=== PATIENT | female | born 1955 | race Caucasian/White ===

== ENCOUNTER → 2019-05-28 10:32 | Outpatient (POV) | payer BC, SELFPAY | PROVIDERS: Visit Provider Dermatology | DX: Z00.00 Encounter for general adult medical examination without abnormal findings (principal) ==

== ENCOUNTER 2021-04-25 12:56 | Emergency (ER) | payer BC, SELFPAY ==
[2021-04-25 12:57] VITALS: BP 101/73; PULSE 109; RESP 18; TEMP 36.9; O2SAT 98; BMI 28.3
--- NOTE | 2021-04-25 13:43 | XR_ITS ---
PROCEDURE INFORMATION: Exam: XR Chest Exam date and time: 04/25/2021 1:43 PM Age: 65 years old Clinical indication: Other: Weakness TECHNIQUE: Imaging protocol: XR of the chest. Views: 1 view. COMPARISON: CR XR CHEST 2V 08/19/2019 10:53 AM FINDINGS: Lungs: Interstitial prominence and asymmetric airspace disease. Pleural spaces: Mild blunting of the right costophrenic angle, consistent with small pleural effusion versus scarring. Heart/Mediastinum: No cardiomegaly. Bones/joints: Degenerative change. IMPRESSION: 1. Interstitial prominence and asymmetric airspace disease. 2. Mild blunting of the right costophrenic angle.
[2021-04-25 13:50] LABS: Influenza A, PCR Not Detected (NotDetected); Influenza B, PCR Not Detected (NotDetected)
[2021-04-25 13:55] LABS: Eosinophils % 0.4 % (0.1-12.0); Hematocrit 43.1 % (37.0-47.0); Hemoglobin 14.2 g/dL (12.2-16.2); Lymphocytes # 0.7 K/mm3 (0.7-4.5); Mean Corpuscular HGB Conc 33.1 g/dL (31.8-35.4); Mean Corpuscular Hemoglobin 32.4 pg (27.0-31.2); Mean Corpuscular Volume 98.1 fl (81-99); Mean Platelet Volume 8.2 fl (7.4-10.4); Monocytes # 0.1 K/mm3 (0.1-1.0); Monocytes % 5.7 % (1.7-9.3); Neutrophils # 1.2 K/mm3 (1.8-7.8); Neutrophils % 59.9 % (37.0-80.0); Platelet Count 189 K/mm3 (142-424); Red Blood Count 4.39 M/mm3 (4.20-5.40); Red Cell Distribution Width 13.5 % (11.5-17.5); White Blood Count 2.1 K/mm3 (4.8-10.8)
[2021-04-25 14:01] LABS: Alanine Aminotransferase 32 U/L (12-78); Albumin Level 4.2 g/dl (3.5-5.0); Albumin/Globulin Ratio 1.1 (1.1-1.8); Alkaline Phosphatase 77 U/L (38-126); Anion Gap 17.9 mEq/L (5-15); Aspartate Amino Transferase 50 U/L (14-36); Bilirubin,Total 0.5 mg/dl (0.2-1.3); Blood Urea Nitrogen 21 mg/dl (7-17); Carbon Dioxide 25 mmol/L (22.0-30.0); Chloride 101 mmol/L (98-107); Creatinine Clearance Estimated 65 mL/min (50-200); Estimated Glomerular Filt Rate 72 ml/min (>60); GFR (African American) 87 ML/MIN (>60); Globulin 3.8 g/dL (1.3-3.2); Glucose 110 mg/dl (74-100); Lactic Acid 1.1 mmol/L (0.7-2.1); Potassium 3.9 mmoL/L (3.5-5.1); Sodium 140 mmol/L (136-145)
[2021-04-25 14:19] LABS: Coronavirus 19, PCR Detected (NotDetected)
[2021-04-25 14:30] VITALS: BP 107/70; PULSE 106; RESP 20; O2SAT 98
[2021-04-25 15:00] VITALS: BP 121/98; PULSE 100; RESP 20; O2SAT 97
[2021-04-25 15:30] VITALS: BP 103/82; PULSE 108; RESP 24; O2SAT 94
[2021-04-25 16:00] VITALS: BP 111/69; PULSE 110; RESP 24; O2SAT 99
--- NOTE | 2021-04-25 16:19 | HMH.EDGENADL ---
ED Disposition Clinical Impression: COVID-19 virus infection Disposition: Home, Self-Care Condition on Discharge: Fair Instructions: DI for COVID-19 (Suspected or Confirmed ) Additional Instructions: Isolate until 10 days after symptoms started. Tylenol or ibuprofen for pain. Rest and drink plenty of fluids. Return to the emergency department if worsening shortness of breath. Referrals: Provider,Referral, [Primary Care Provider] - - Critical Care Critical Care Time: No Attestation: On 04/25/21, the high probability of a clinically significant, sudden or life threatening deterioration of the following system(s) required my full and direct attention, intervention and personal management. The time I documented below is in addition to time spent performing reported procedures but includes the following listed in this critical care notation. Medical Decision Making - Dean Inquiry Pt receiving controlled substance: No Vital Signs: 04/25/21 12:57 04/25/21 14:30 04/25/21 15:00 Temperature 98.4 F Temperature Source Oral Pulse Rate 106 H 100 H Pulse Rate [Right Radial] 109 H Respiratory Rate 18 20 20 Blood Pressure 107/70 L 121/98 H Blood Pressure [Right Arm] 101/73 L Blood Pressure Mean 78 105 Blood Pressure Mean [Right Arm] 82 Blood Pressure Source [Right Arm] Automatic Cuff Blood Pressure Position [Right Arm] Sitting 02 Sat by Pulse Oximetry 98 98 97 Oxygen Delivery Method Room Air 04/25/21 15:30 04/25/21 16:00 Temperature Temperature Source Pulse Rate 108 H 110 H Pulse Rate [Right Radial] Respiratory Rate 24 24 Blood Pressure 103/82 L 111/69 Blood Pressure [Right Arm] Blood Pressure Mean 89 83 Blood Pressure Mean [Right Arm] Blood Pressure Source [Right Arm] Blood Pressure Position [Right Arm] 02 Sat by Pulse Oximetry 94 L 99 Oxygen Delivery Method - Lab Data Lab Results 04/25/21 13:35: WBC 2.1 L, RBC 4.39, Hgb 14.2, Hct 43.1, MCV 98.1, MCH 32.4 H, MCHC 33.1, RDW 13.5, Plt Count 189, MPV 8.2, Neut % (Auto) 59.9, Lymph % (Auto) 33.0, [place] % (Auto) 5.7, Eos % (Auto) 0.4, Baso % (Auto) 1.0, Neut # (Auto) 1.2 L, Lymph # (Auto) 0.7, [place] # (Auto) 0.1, Eos # (Auto) 0.0, Baso # (Auto) 0.0 04/25/21 13:35: Sodium 140, Potassium 3.9, Chloride 101, Carbon Dioxide 25, Anion Gap 17.9 H, BUN 21 H, Creatinine 0.80, Estimated Creat Clear 65, Estimated GFR 72, Est GFR ( Amer) 87, Glucose 110 H, Calcium 9.0, Total Bilirubin 0.5, AST 50 H, ALT 32, Alkaline Phosphatase 77, Total Protein 8.0, Albumin 4.2, Globulin 3.8 H, Albumin/Globulin Ratio 1.1 04/25/21 13:35: Lactate 1.1 04/25/21 13:35: SARS-CoV-2 (PCR) Detected A, Influenza A Untype (PCR) Not detected, Influenza Type B (PCR) Not detected Result diagrams: 04/25/21 13:35 04/25/21 13:35 Orders (Tests/Meds): ED MEDICATIONS Generic Name Dose Route Start Last Admin Trade Name Freq PRN Reason Stop Dose Admin Sodium Chloride 1,000 ml 04/25/21 16:35 Sodium Chloride 0.9% 1000ml Bag IV 04/25/21 16:36 BOLUS ONE ORDERS Category Date Time Status Blood Culture Stat Micro 04/25/21 13:35 Received - Radiology Data #1 Image(s): Chest Image Reviewed: Yes I have reviewed radiologist's interpretation PROCEDURE INFORMATION: Exam: XR Chest Exam date and time: 04/25/2021 1:43 PM Age: 65 years old Clinical indication: Other: Weakness TECHNIQUE: Imaging protocol: XR of the chest. Views: 1 view. COMPARISON: CR XR CHEST 2V 08/19/2019 10:53 AM FINDINGS: Lungs: Interstitial prominence and asymmetric airspace disease. Pleural spaces: Mild blunting of the right costophrenic angle, consistent with small pleural effusion versus scarring. Heart/Mediastinum: No cardiomegaly. Bones/joints: Degenerative change. IMPRESSION: 1. Interstitial prominence and asymmetric airspace disease. 2. Mild blunting of the right costophrenic angle. Electronically signed by Eduardo Finley MD
[2021-04-25 18:11] VITALS: BP 123/74; PULSE 87; RESP 20; TEMP 36.6; O2SAT 98
--- NOTE | 2021-04-26 14:42 | PC.NURSE ---
Attempted to call patient after receiving positive culture results without answer. Number disconnected, unable to leave a message
== END 2021-04-25 18:13 | disposition home or self-care (01) ==
PROVIDERS: Emergency Provider Emergency Medicine
DX: U07.1 COVID-19 (principal); F17.210 Nicotine dependence, cigarettes, uncomplicated
CPT/HCPCS: 71045; 80053; 83605; 85025; 87040; 87077; 87186; 96365; 99284; U0003

== ENCOUNTER 2021-12-12 15:04 | Emergency (ER) | payer MEDICARE, SELFPAY ==
[2021-12-12 15:21] VITALS: BP 111/61; PULSE 95; RESP 16; TEMP 36.6; O2SAT 98; BMI 28.3
[2021-12-12 16:00] VITALS: BP 111/61; PULSE 95; RESP 16; TEMP 36.7; O2SAT 98; BMI 28.3
--- NOTE | 2021-12-12 16:19 | HMH.EDUTC ---
[facility] [facility] [place] Clinical Impression: Lac[place] Disposition: Home, Self-Care Condition on Discharge: Good Instructions: DI for Laceration Repair -- Simple Additional Instructions: keep area clean and dry return n 10 days for suture removal watch for s/s infection Prescriptions: cephALEXin [Cephalexin 500mg Tab] 500 mg PO BID 7 Days #14 tab Transmission Status: Pending to [id number] Referrals: Paty Alexandra APRN [Primary Care Provider] - Time of Disposition: 16:27 Medical Decision Making - Dean Inquiry Pt receiving controlled substance: No Vital Signs: 12/12/21 15:21 Temperature 98 F Temperature Source Oral Pulse Rate [Radial] 95 H Respiratory Rate 16 Blood Pressure [Right Arm] 111/61 Blood Pressure Mean [Right Arm] 77 Blood Pressure Position [Right Arm] Sitting 02 Sat by Pulse Oximetry 98 Oxygen Delivery Method Room Air Orders (Tests/Meds): ED MEDICATIONS Discontinued Medications Generic Name Dose Route Start Last Admin Trade Name Freq PRN Reason Stop Dose Admin Tetanus/Reduced Diphtheria/Acell Pertussis 0.5 ml 12/12/21 15:50 Tet/Diphth/Pert-Adult 0.5ml Syringe IM 12/12/21 15:51 .ONCE ONE [facility] [place] [facility] [place] - General Chief complaint: Urgent [facility] Stated complaint: left hand laceration Time Seen by Provider: 12/12/21 16:19 Mode of Arrival: Ambulatory Source of Information: Patient Limitations: No Limitations Description of Symptoms (Recalled from Triage Doc. by RN): PT REPORTS LACERATION TO PALM SIDE OF LT HAND ON BROKEN CERAMIC PIECE. - History of Present Illness Provider Complaint: 66 yr old female presents for laceration to palm on left hand at ring finger base for ceramic what knot - Related Data Previous Rx's Medication Instructions Recorded Pantoprazole Sodium [Protonix 40mg 40 mg PO DAILY 30 Days #30 tab 01/28/18 tablet] Azithromycin [Z-Hipolito 250mg Tab*] 250 mg PO UD DOSE PK #6 tab 08/19/19 cephALEXin [Cephalexin 500mg Tab] 500 mg PO BID 7 Days #14 tab 12/12/21 Allergies Allergy/AdvReac Type Severity Reaction Status Date / Time No Known Allergies Allergy Unverified 08/15/17 14:58 [facility] History - Hepatitis A Screen Attestation statement:: This patient has been screened for Hepatitis A risk factors. I have reviewed the patient's past medical history: Yes Medical History: Denies:: Cancer, Diabetes Mellitus Type 1, Diabetes Mellitus Type 2, MRSA Amputation: No Fractures: No - Social History Smoking Status: Current every day smoker Tobacco Type: cigarettes Alcohol Intake: never Occupational Status: employed ROS Obtained: Yes Systems reviewed as appropriate & no additional complaints - Constitutional Constitutional: Reports system reviewed and no additional complaints, except as docu, Denies fever(s) - Eyes Eyes: Reports system reviewed and no additional complaints, except as docu, Denies loss of vision - ENT Ears, Nose, Mouth, and Throat: Reports system reviewed and no additional complaints, except as docu, Denies otalgia - Cardiovascular Cardiovascular: Reports system reviewed and no additional complaints, except as docu, Denies chest pain - Respiratory Respiratory: Reports system reviewed and no additional complaints, except as docu, Denies cough - Gastrointestinal Gastrointestingal: Reports: system reviewed and no additional complaints, except as docu. Denies: diarrhea - Musculoskeletal Musculoskeletal: Reports system reviewed and no additional complaints, except as docu, Denies joint pain - Integumentary/Breasts Skin/Breast: Reports system reviewed and no additional complaints, except as docu, Reports as per HPI, Reports wounds - Neurologic Neurologic: Reports system reviewed and no additional complaints, except as docu, Denies dizziness - Endocrine Endocrine: Reports system reviewed and no additional complaints, except as docu, Denies deepening of the voice - Hematologic/Lymphatic Hen
[2021-12-12 16:20] VITALS: BP 111/61; PULSE 95; RESP 16; TEMP 36.7; O2SAT 98
== END 2021-12-12 16:31 | disposition home or self-care (01) ==
PROVIDERS: Emergency Provider Nurse Practitioner Family; PCP Nurse Practitioner Family
DX: S61.412A Laceration without foreign body of left hand, initial encounter (principal); F17.210 Nicotine dependence, cigarettes, uncomplicated; Z23 Encounter for immunization; W26.9XXA Contact with unspecified sharp object(s), initial encounter
CPT/HCPCS: 12001; G0168; 90471; 90715; 99213; G0463

== ENCOUNTER 2021-12-21 11:44 | Emergency (ER) | payer MEDICARE, SELFPAY ==
[2021-12-21 12:05] VITALS: BMI 28.3
[2021-12-21 12:06] VITALS: BP 146/88; PULSE 98; RESP 14; TEMP 36.7; O2SAT 100
== END 2021-12-21 12:06 | disposition home or self-care (01) ==
LOC: UTC 11:47
PROVIDERS: Emergency Provider Nurse Practitioner
DX: Z48.02 Encounter for removal of sutures (principal)

== ENCOUNTER 2023-09-20 11:15 | Emergency (ER) | payer MEDICARE, SELFPAY ==
[2023-09-20] VITALS (13 sets, daily range): BP systolic 89–142; BP diastolic 48–82; PULSE 76–125; RESP 14–22; TEMP 36.4–36.8; O2SAT 93–98; BMI 28.3
--- NOTE | 2023-09-20 11:14 | ECG_ITS ---
APPROVED REPORT Exam: Resting ECG HR:123 bpm ECG Measurements Heart Rate 123 AXES MO 148 P 51 QRSd 85 QRS -39 QT 337 T 22 QTc 410 Conclusion SINUS TACHYCARDIA LEFT AXIS DEVIATION [QRS AXIS < -30] LOW QRS VOLTAGE IN PRECORDIAL LEADS [QRS DEFLECTION < 1.0 mV IN CHEST LEADS] POSSIBLE ANTERIOR MYOCARDIAL INFARCTION , old ABNORMAL ECG UNCONFIRMED REPORT Electronically signed by : Elvis Cleveland MD 09/22/2023 14:45:30
--- NOTE | 2023-09-20 11:18 | XR_ITS ---
FINAL REPORT CLINICAL HISTORY: chest pain, SOA COMPARISON: 04/25/2021 FINDINGS: SINGLE-VIEW CHEST The heart size is normal. The mediastinum is normal. The previously noted airspace opacity in the periphery of the right lung has improved consistent with resolving pneumonia. There is increased atelectasis in the right perihilar region. There is no pneumothorax. IMPRESSION: Improving pneumonia. Reviewed, Interpreted and Dictated by Flaquito Long MD Transcribed by Bibiana Walsh Authenticated and [facility]
[2023-09-20 11:23] LABS: Coronavirus 19, PCR Not Detected (NotDetected); Influenza A, PCR Not Detected (NotDetected); Influenza B, PCR Not Detected (NotDetected)
--- NOTE | 2023-09-20 11:23 | PC.NURSE ---
XR AT BEDSIDE
--- NOTE | 2023-09-20 11:25 | HMH.EDCP ---
Discharge Plan Disposition Patient Disposition: Home, Self-Care Condition: Good Prescriptions Prescriptions: New amoxicillin-pot clavulanate 875-125 mg tablet 1 tab PO BID Qty: 20 0RF azithromycin [Zithromax TRI-МАРИЯ] 500 mg tablet See Rx Instructions .ROUTE .COMPLEX Qty: 9 0RF Rx Instructions: For 250 mg dose pack: take 500 mg today (day 1), then 250 mg for 4 days (days 2-5) No Action pantoprazole 40 MG tablet,delayed release (DR/EC) 40 mg PO DAILY 30 Days Qty: 30 2RF azithromycin 250 MG tablet 250 mg PO UD DOSE PK Qty: 6 0RF Rx Instructions: Take two (2) tablets today, then one (1) tablet days #2 thru #5 cephalexin 500 MG tablet 500 mg PO BID 7 Days Qty: 14 0RF Referrals Follow up/Referrals: Provider,Referral, MD [Primary Care Provider] - See instructions Activity Restrictions/Add. Instructions Additional Instructions/Restrictions: You were evaluated in the emergency department today and diagnosed with pneumonia. 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 Return to the emergency department for new or worsening symptoms, such as worsening symptoms, difficulty breathing, or other concerns. Take Tylenol and ibuprofen as needed for pain. Clinical Impressions Clinical Impression: Pleurisy Pneumonia Qualifiers: Pneumonia type: due to unspecified organism Laterality: right Lung location: unspecified part of lung Qualified Code(s): J18.9 - Pneumonia, unspecified organism Instructions Patient Instructions: DI for Pneumonia -- Adult, DI for Atypical Chest Pain, DI for Pleurisy Discharge ED Provider: [place] [facility] General Chief Complaint: Chest Pain Stated Complaint: Chest Pain Time Seen by Provider: 09/20/23 11:16 Mode of Arrival: Wheelchair Source of Information: Patient Limitations: No Limitations Description of Symptoms (Recalled from ER Triage Doc. by RN): pt presents to ED with c/o weakness, nausea, vomitting, and right sided chest pain. pt reports it hurts when she moves or takes a deep breath. symptoms began this morning. History of Present Illness HPI narrative: This patient is a 67-year-old female with a history of lupus and GERD presenting to the emergency department for evaluation with concern for right-sided pleuritic chest pain. Patient states that she woke up this morning feeling like she may have the flu. She states that she was having bodyaches, aches in her hips, nausea, and right-sided chest pain. She states that it hurts when she moves or takes a deep breath. She denies any traumatic injuries or falls. She told her son that she felt like her lung collapsed. She denies any history of cardiopulmonary issues or any history of blood clots or clotting disorders. She was fine last night when she went to bed. She does note nausea, vomiting, and diarrhea that happened this morning. No other concerns noted at this time. Related Data Previous Rx's Medication Instructions Recorded pantoprazole 40 mg tablet,delayed 40 mg PO DAILY 30 days #30 tabs 01/28/18 release azithromycin 250 mg tablet 250 mg PO UD DOSE PK #6 tabs 08/19/19 cephalexin 500 mg tablet 500 mg PO BID 7 days #14 tabs 12/12/21 amoxicillin 875 mg-potassium 1 tab PO BID #20 tabs 09/20/23 clavulanate 125 mg tablet azithromycin 500 mg tablet See Rx Instructions PO .COMPLEX #9 09/20/23 (Zithromax TRI-МАРИЯ) tabs Allergies Allergy/AdvReac Type Severity Reaction Status Date / Time No Known Allergies Allergy Unverified 08/15/17 14:58 [facility] Disclaimer: The information contained in this section may have been updated after the patient was seen, as this information can be updated by other users. Social History Smoking Status: Former smoker tobacco type: cigarettes alcohol intake: never current occupational status: employed Travel in the last 8 weeks: None ROS Obtained: Yes All systems reviewed & no additional complaints except as documented Physical Exam General General appearance: alert Comment: Uncomfortable appearing Head Head exam: atraumatic and normocephalic Eye Eye exam: Present normal appearance, PERRL and EOMI ENT ENT exam: Present normal exam, normal oropharynx, mucous membranes moist and normal external ear exam Neck Neck exam: Present normal inspection, full ROM and trachea midline; Absent tenderness Chest Chest inspection: Present symmetric chest wall rise; Absent tenderness Respiratory Respiratory exam: Present normal lung sounds bilaterally and other (Splinting respirations); Absent wheezes, stridor or accessory muscle use Cardiovascular Cardiovascular exam: Present normal rhythm and tachycardia Abdominal Exam Abdominal exam: Present soft; Absent distention, tenderness or guarding Extremities Exam Extremities exam: Present normal inspection, full ROM and normal capillary refill; Absent tenderness or edema Back Exam Back exam: Present normal inspection and full ROM; Absent tenderness Neurological Exam Neurological exam: Present alert, oriented X3, CN II-XII intact and normal gait; Absent motor sensory deficit Psychiatric Psychiatric exam: Present normal affect and normal mood Skin Skin exam: Present warm and dry HEART Score HEART Score HEART Score assessment performed?: Yes History (anamnesis): Slightly suspicious ECG: Normal Age: >65 years Risk factors: 1-2 risk factors Troponin: </= normal limit HEART Score: 3 Critical Care Critical Care Time Critical Care Time: No Medical Decision Making Medical Records Medical records reviewed: Yes I reviewed the patient's medical records. Dean Inquiry Pt receiving controlled substance: No Vital Signs Vital Signs: 09/20/23 11:15 09/20/23 11:22 09/20/23 11:30 Temperature 97.6 F Temperature Source Oral Pulse Rate 107 H 95 H Pulse Rate [Left Radial] 125 H Respiratory Rate 19 22 Blood Pressure 114/66 Blood Pressure [Right Arm] 142/82 H Blood Pressure Mean Blood Pressure Mean [Right Arm] 102 Blood Pressure Source Blood Pressure Position 02 Sat by Pulse Oximetry 98 98 Oxygen Delivery Method Room Air Room Air 09/20/23 12:00 09/20/23 12:30 09/20/23 13:25 Temperature Temperature Source Pulse Rate 76 77 Pulse Rate [Left Radial] Respiratory Rate 14 16 15 Blood Pressure 115/57 L 117/63 105/61 L Blood Pressure [Right Arm] Blood Pressure Mean Blood Pressure Mean [Right Arm] Blood Pressure Source Blood Pressure Position 02 Sat by Pulse Oximetry 96 97 94 L Oxygen Delivery Method Room Air Room Air Room Air 09/20/23 13:30 09/20/23 14:00 09/20/23 14:30 Temperature Temperature Source Pulse Rate 76 84 Pulse Rate [Left Radial] Respiratory Rate 18 17 19 Blood Pressure 104/48 L 100/53 L 101/48 L Blood Pressure [Right Arm] Blood Pressure Mean 69 Blood Pressure Mean [Right Arm] Blood Pressure Source Blood Pressure Position 02 Sat by Pulse Oximetry 93 L 95 Oxygen Delivery Method Room Air Room Air 09/20/23 15:00 09/20/23 16:18 09/20/23 16:26 Temperature 97.7 F Temperature Source Pulse Rate 82 76 76 Pulse Rate [Left Radial] Respiratory Rate 16 18 18 Blood Pressure 89/53 L 108/58 L 108/58 L Blood Pressure [Right Arm] Blood Pressure Mean Blood Pressure Mean [Right Arm] Blood Pressure Source Automatic Cuff Automatic Cuff Blood Pressure Position Sitting Sitting 02 Sat by Pulse Oximetry 96 98 Oxygen Delivery Method Room Air Room Air Room Air 09/20/23 16:30 Temperature 98.3 F Temperature Source Oral Pulse Rate 78 Pulse Rate [Left Radial] Respiratory Rate 16 Blood Pressure 108/58 L Blood Pressure [Right Arm] Blood Pressure Mean Blood Pressure Mean [Right Arm] Blood Pressure Source Automatic Cuff Blood Pressure Position Sitting 02 Sat by Pulse Oximetry Oxygen Delivery Method Room Air Lab Data Labs: Lab Results 09/20/23 11:15: WBC 5.1, RBC 4.21, Hgb 13.7, Hct 41.1, MCV 97.4, MCH 32.5 H, MCHC 33.4, RDW 14.3, Plt Count 158, MPV 8.6, Neut % (Auto) 74.8, Lymph % (Auto) 16.4, [place] % (Auto) 6.6, Eos % (Auto) 2.0, Baso % (Auto) 0.2, Neut # (Auto) 3.8, Lymph # (Auto) 0.8, [place] # (Auto) 0.3, Eos # (Auto) 0.1, Baso # (Auto) 0.0, PT 10.9, INR 1.01, APTT 23.2, D-Dimer 0.88 H, Sodium 144, Potassium 3.7, Chloride 109 H, Carbon Dioxide 25, Anion Gap 13.7, BUN 18 H, Creatinine 0.90, Estimated Creat Clear 63, Estimated GFR 63, Est GFR ( Amer) 76, Glucose 181 H, Calcium 9.2, Total Bilirubin 0.6, AST 42 H, ALT 39, Alkaline Phosphatase 90, Troponin I < 0.01, Total Protein 7.5, Albumin 4.3, Globulin 3.2, Albumin/Globulin Ratio 1.3, TSH 0.64, Thyroxine (T4) 11.1 H 09/20/23 13:25: SARS-CoV-2 (PCR) Not detected, Influenza A Untype (PCR) Not detected, Influenza Type B (PCR) Not detected 09/20/23 14:07: Troponin I < 0.01 09/20/23 11:15 09/20/23 11:15 Response Orders (Tests/Meds): ED MEDICATIONS Discontinued Medications Generic Name Dose Route Start Last Admin Trade Name [place] PRN Reason Stop Dose Admin Acetaminophen 1,000 mg 09/20/23 11:18 09/20/23 11:28 Acetaminophen 1,000mg/100ml Vial IV 09/20/23 11:19 1,000 mg ONCE ONE Administration Amoxicillin/Clavulanate Potassium 1 each 09/20/23 14:42 09/20/23 14:52 Amoxicillin/Clavulanate Potassium 875/125mg Tablet PO 09/20/23 14:43 1 each ONCE ONE Administration Azithromycin 500 mg 09/20/23 14:42 09/20/23 14:52 Azithromycin 250mg Tablet PO 09/20/23 14:43 500 mg ONCE ONE Administration Lactated Ringer's 1,000 mls @ 999 mls/hr 09/20/23 11:18 09/20/23 11:28 Lactated Ringer's 1000 Ml Bag IV 09/20/23 12:18 999 mls/hr .Q1H1M ONE Administration Iopamidol 70 ml 09/20/23 12:59 09/20/23 13:00 Iopamidol-370 (76%);100ml Bottle IV 09/20/23 13:00 70 ml ONCE ONE Administration Ketorolac Tromethamine 15 mg 09/20/23 11:18 09/20/23 11:27 Ketorolac 30mg/Ml Vial IV 09/20/23 11:19 15 mg ONCE ONE Administration Ondansetron HCl 4 mg 09/20/23 11:20 09/20/23 11:27 Ondansetron 4mg/2ml Vial IV 09/20/23 11:21 4 mg ONCE ONE Administration Sodium Chloride 50 ml 09/20/23 12:59 09/20/23 13:00 0.9 % Sodium Chloride 50 Ml Vial IV 09/20/23 13:00 50 ml ONCE ONE Administration Sodium Chloride 10 ml 09/20/23 12:59 Sodium Chloride 0.9% 10ml Syr (Rad Only) IV 10/20/23 12:58 NEEDED PRN Maintain IV Site ORDERS Category Date Time Status CT angio chest PE protocol Stat Cat Scan 09/20/23 12:09 Completed XR chest portable Stat Exams 09/20/23 11:18 Completed Activated Partial Thrombo Time Stat Lab 09/20/23 11:15 Completed Complete Blood Count Auto Diff Stat Lab 09/20/23 11:15 Completed Comprehensive Metabolic Panel Stat Lab 09/20/23 11:15 Completed D-Dimer Stat Lab 09/20/23 11:15 Completed Prothrombin Time INR Stat Lab 09/20/23 11:15 Completed Rapid PCR Covid and Flu A/B Stat Lab 09/20/23 13:25 Completed T4 (Thyroxine) Stat Lab 09/20/23 11:15 Completed Thyroid Stimulating Hormone Stat Lab 09/20/23 11:15 Completed Troponin I Q3H Lab 09/20/23 14:07 Completed Troponin I Q3H Lab 09/20/23 17:30 Ordered Troponin I Stat Lab 09/20/23 11:15 Completed ECG initial [place] Routine Y 09/20/23 11:14 Completed ECG Data Tracing #1: Attestation: I reviewed this ECG and interpreted as documented below: ECG Narrative: Sinus tachycardia with a ventricular rate of [address] changes concerning for ischemia. Left axis deviation noted. ECG initial impression date: 09/20/23 ECG initial impression time: 11:15 MDM Narrative Medical Decision Narrative: In summary, this patient is a 67-year-old female presenting to the Emergency Department for evaluation of right-sided chest pain, body aches, shortness of breath, nausea, vomiting, and diarrhea. Differential diagnoses considered include but are not limited to viral syndrome, pneumonia, pleurisy, pneumothorax, PE, ACS, dysrhythmia. Ruling out the most morbid conditions drove assessment. It should be noted patient's history includes lupus which may or may not be at goal therapy. This complicates all aspects of care by increasing patient's risk for morbidity. On exam, the patient is uncomfortable appearing with splinting respirations, holding her right ribs. She has sinus tachycardia but her vitals are otherwise reassuring. Workup included CBC, CMP, troponin, TSH, T4, D-dimer, coags, viral swab, chest x-ray, and EKG. She was given a bolus of IV fluids as well as IV Toradol, Zofran, and acetaminophen to assess for symptomatic improvement.. I independently interpreted x-ray prior to the radiologist read and noted no acute focal consolidation. EKG is reassuring.. Please see their read for final interpretation. Labs were obtained that demonstrated mildly elevated D-dimer, so CTA of the chest was ordered. CT is concerning for pneumonia. On reassessment, patient had good improvement after administration of interventions as above. She is resting comfortably with reassuring vital signs on cardiac telemetry. Troponins are negative x 2. With concern for pneumonia, patient was given Augmentin and azithromycin. She tolerated this well. At this time, she is resting comfortably on room air and is deemed to be appropriate for discharge. She was given instructions to close a patient follow-up, strict return precautions, and she was discharged in stable condition with prescriptions for Augmentin and azithromycin.
[2023-09-20] MEDS: ONDANSETRON 4MG/2ML VIAL 4 MG IV (11:27)
[2023-09-20] MEDS: KETOROLAC 30MG/ML VIAL 15 MG IV (11:27)
[2023-09-20] MEDS: ACETAMINOPHEN 1,000MG/100ML VIAL 1000 MG IV (11:28)
[2023-09-20] MEDS: LACTATED RINGERS 1000ML 1,000 ML 999 ML IV (11:28)
[2023-09-20 11:40] LABS: Basophils % 0.2 % (0.1-2.0); Eosinophils # 0.1 K/mm3 (0.0-0.4); Hematocrit 41.1 % (37.0-47.0); Hemoglobin 13.7 g/dL (12.2-16.2); Lymphocytes # 0.8 K/mm3 (0.7-4.5); Lymphocytes % 16.4 % (10-50); Mean Corpuscular HGB Conc 33.4 g/dL (31.8-35.4); Mean Corpuscular Hemoglobin 32.5 pg (27.0-31.2); Mean Corpuscular Volume 97.4 fl (81-99); Mean Platelet Volume 8.6 fl (7.4-10.4); Monocytes # 0.3 K/mm3 (0.1-1.0); Monocytes % 6.6 % (1.7-9.3); Neutrophils # 3.8 K/mm3 (1.8-7.8); Neutrophils % 74.8 % (37.0-80.0); Platelet Count 158 K/mm3 (142-424); Red Blood Count 4.21 M/mm3 (4.20-5.40); Red Cell Distribution Width 14.3 % (11.5-17.5); White Blood Count 5.1 K/mm3 (4.8-10.8)
[2023-09-20 11:45] LABS: Chloride 109 mmol/L (98-107); Potassium 3.7 mmoL/L (3.5-5.1); Sodium 144 mmol/L (136-145)
[2023-09-20 11:46] LABS: Activated Partial Thrombo Time 23.2 seconds (22.8-30.6); INR 1.01 (0.9-1.1); Prothrombin Time 10.9 seconds (10.1-12.5)
[2023-09-20 11:48] LABS: Alanine Aminotransferase 39 U/L (12-78); Albumin Level 4.3 g/dl (3.5-5.0); Albumin/Globulin Ratio 1.3 (1.1-1.8); Alkaline Phosphatase 90 U/L (38-126); Anion Gap 13.7 mEq/L (5-15); Aspartate Amino Transferase 42 U/L (14-36); Bilirubin,Total 0.6 mg/dl (0.2-1.3); Blood Urea Nitrogen 18 mg/dl (7-17); Calcium 9.2 mg/dl (8.4-10.2); Carbon Dioxide 25 mmol/L (22.0-30.0); Creatinine Clearance Estimated 63 mL/min (50-200); Estimated Glomerular Filt Rate 63 ml/min (>60); GFR (African American) 76 ML/MIN (>60); Globulin 3.2 g/dL (1.3-3.2); Glucose 181 mg/dl (74-100); Total Protein,Serum 7.5 g/dl (6.3-8.2)
[2023-09-20 11:57] LABS: D-Dimer 0.88 ug/mL (0.0-0.5)
[2023-09-20 11:59] LABS: Troponin I < 0.01 ng/ml (0.00-0.034)
[2023-09-20 12:04] LABS: T4 (Thyroxine) 11.1 ug/dl (5.53-11.0)
--- NOTE | 2023-09-20 12:09 | CT_ITS ---
FINAL REPORT TECHNIQUE: The patient was injected with IV contrast. Axial images were obtained through the chest in a PE protocol. 3-D reconstruction images were also performed. Individualized dose reduction techniques using automated exposure control or adjustment of the MA and/or KV according to patient's size were employed. CLINICAL HISTORY: R pleuritic CP COMPARISON: None FINDINGS: Mediastinal vasculature is adequately opacified. No pulmonary artery filling defects are identified to suggest PE. There is no aortic dissection. There is no axillary adenopathy. There is no hilar or mediastinal adenopathy. There is a moderate hiatal hernia. The heart size is normal. There is no pericardial or pleural effusion. Patchy airspace infiltrates in the right upper lobe and both lower lobes are probably due to acute pneumonia. Limited images of the upper abdomen demonstrate no acute findings. IMPRESSION: Bilateral patchy infiltrates most evident in the right upper lobe consistent with acute pneumonia. Reviewed, Interpreted and Dictated by Flaquito Long MD Transcribed by Merary Hirsch Authenticated and [facility]
[2023-09-20 12:17] LABS: Thyroid Stimulating Hormone 0.64 uIU/mL (0.465-4.68)
[2023-09-20] MEDS: IOPAMIDOL-370 (76%);100ML BOTTLE 70 ML IV (13:00)
[2023-09-20] MEDS: 0.9 % SODIUM CHLORIDE 50 ML VIAL IV (13:00)
[2023-09-20] MEDS: AZITHROMYCIN 250MG TABLET 500 MG PO (14:52)
[2023-09-20] MEDS: AMOXICILLIN/CLAVULANATE POTASSIUM 875/125MG TABLET 1 EACH PO (14:52)
--- NOTE | 2023-09-20 15:16 | PC.NURSE ---
called lab to check on second trop lab states it will be 50 minutes second trop was just put on
--- NOTE | 2023-09-20 16:00 | PC.NURSE ---
called lab to check on 2nd troponin and she states that trop has 15 mins until completion
[2023-09-20 16:17] LABS: Troponin I < 0.01 ng/ml (0.00-0.034)
== END 2023-09-20 16:31 | disposition home or self-care (01) ==
PROVIDERS: Emergency Medicine; Emergency Provider Emergency Medicine
DX: R09.1 Pleurisy (principal); J18.9 Pneumonia, unspecified organism; R07.9 Chest pain, unspecified; R53.1 Weakness; R11.2 Nausea with vomiting, unspecified; R00.0 Tachycardia, unspecified; Z87.891 Personal history of nicotine dependence
CPT/HCPCS: 71045; 71275; 80053; 84436; 84443; 84484; 85025; 85378; 85610; 85730; 87636; 93005; 96361; 96374; 96375; 99285; J0131; J2405; Q9967